=== PATIENT | female | born 1990 ===

== ENCOUNTER 2018-05-24 22:19 | Inpatient (IN) | payer MEDICAID, SELFPAY ==
[2018-05-24 22:53] VITALS: BMI 28.5
[2018-05-24] MEDS ORDERED: Oxytocin 30 UNIT 30 UNITS/500 ML BAG IV ONE (23:41)
[2018-05-24] MEDS ORDERED: OXYTOCIN/0.9 % NS 20 UNIT/1,000 ML BAG IV SCH (23:45)
[2018-05-25 00:13] LABS: BASO # 0.1 K/uL (0.0-0.2); BASO % 0.9 % (0.0-2.0); EOS % 0.5 % (0.0-4.0); HEMOGLOBIN 13.1 g/dL (12.0-16.0); LYMPH # 1.8 K/uL (1.0-4.3); LYMPH % 22.4 % (20.0-40.0); MEAN CELL VOLUME 87.4 fl (81.0-99.0); MEAN CORPUSCULAR HEMOGLOBIN 29.5 pg (27.0-31.0); MEAN CORPUSCULAR HGB CONC 33.7 g/dL (33.0-37.0); MONO # 0.5 K/uL (0.0-0.8); NEUT # 5.7 K/uL (1.8-7.0); NEUT % 70.2 % (50.0-75.0); RBC 4.45 Mil/uL (3.80-5.20); RED CELL DISTRIBUTION WIDTH 14.2 % (11.5-14.5); WHITE BLOOD COUNT 8.1 K/uL (4.8-10.8)
[2018-05-25] MEDS ORDERED: Fentanyl/Bupivacaine HCl 250 ML EPI ONE (00:25)
[2018-05-25] MEDS ORDERED: Lidocaine 1% Inj (20ml) ONE (00:29)
[2018-05-25] MEDS: Lactated Ringer's 1,000 ML IV SCH ×2 (00:30)
[2018-05-25] MEDS ORDERED: Lactated Ringer's 1,000 ML IV SCH (01:00)
[2018-05-25 01:26] VITALS: O2SAT 100
[2018-05-25] MEDS ORDERED: Benzocaine/Menthol SPRAY TOP PRN ×2 (05:51→19:49)
[2018-05-25] MEDS ORDERED: Oxycodone/Acetaminophen 5/325 mg Tab PO PRN ×2 (05:51→19:49)
[2018-05-25] MEDS ORDERED: Oxytocin 30 UNIT 30 UNITS/500 ML BAG IV ONE (05:53)
--- NOTE | 2018-05-25 06:00 | OBHP ---
Datetime: 05/24/2018 23:25 IP Adm Impression: Term, intrauterine IP Admit Plan: Observation/Evaluation Admit Comment, IP Provider: [employer]- [id number] 28 y/o at 38wks based on LMP 08/31/2017 is presenting with c/o sharp intermittent lower abdomi nal pain, 8/10 that started about 12pm. She also endorses noticing some vaginal spotting _ +FM. She d enied any loss of fluid. Denied f/v/n/v/d/ chest discomfort, shortness of breath or dysuria. OBGYNhx: , 2014 PMH: Denies Meds: PNV Allegies: NKA Surghx: Denies Famhx: brother-leukemia; mother _ father are healthy Sochx: Denies tobacco, EtOH or elicit drugs use ROS: all12 points reviewed _ neg unless otherwise mentioned in HPI VS: 110/66 spo2-100% pulse-79bpm RR-16 Gen: laying awake in bed, supine positing with facial grimacing Cardio: s1s2 RRR Lungs: normal resp effort Abd: BS+, nontender Pelvic: 5-6cm, 80% effaced, station -3 Ext: nonedematous A/P: 28 y/o at 38wks based on LMP 08/31/2017 is presenting with c/o sharp intermittent lower a bdominal pain _ vaginal spotting. -Admit to unit _ initiate labor protocol. -Continue FHR monitoring. Case discussed with Dr. Noe Mullen, FM, PGY-1 The patient was seen with the resident I agree with the note Extremities - PN: Normal Abdomen - PN: Normal Lungs - PN: Normal Heart - PN: Normal General - PN: Normal FHR - Baseline A Provider: 145 (Annotations: Data stored by CPN on behalf of user) Gestation - Est Wks by US: 38.0 Pool Provider: Negative IP Hx Assessment: The History has been Reviewed and is Current EGA AdmitDate IP: 38.0 Vital Signs Provider: Reviewed; Within Normal Limits IP Chief Complaint: Uterine contractions; Vaginal bleeding; Maternal discomfort NICHD Variability Prov Fetus A: Moderate 6-25bpm NICHD Accel Fetus A IP Provider: [id number] FHR Category Provider Fetus A: Category I NICHD Decel Fetus A IP Provider: None Dilatation, Provider: 5-6 Effacement, Provider: 80 Station, Provider: -3
--- NOTE | 2018-05-25 06:18 | OBDS ---
DELIVERY PERSONNEL Delivery Doctor: Anthony Liu MD Roofer Apprentice: Yara Garza RN Anesthesiologist: Teddy Means Resident: JAGDISH Mullen MATERNAL INFORMATION Delivery Anesthesia: Epidural Medications in Delivery: Oxytocin Estimated Blood Loss (ml): 200 Placenta Cultured: No Maternal Complications: None Provider Comments: Live baby boy at 5:31 AM the baby was bulb suctioned on the perineum and transfer red to the maternal chest. The cord was clamped and cut 3 vessels noted cord blood was obtained and s ent to lab. The placenta was delivered at 5:41 AM intact, the quantified blood loss was 200 mL. There was a first-degree vaginal laceration which was repaired with 2-0 Rapide. The mother tolerated the p rocedure well the baby went to the well-baby nursery with Apgars of 9 and 9 weighing 3145 g LABOR SUMMARY EDC: 06/07/2018 00:00 No. Babies in Womb: 1 Attempted: No Labor Anesthesia: Epidural LABOR INFORMATION Reason for Induction: Not Applicable Onset of Labor: 05/24/2018 23:35 Complete Dilatation: 05/25/2018 03:58 Oxytocin: N/A Group B Beta Strep: Negative Antibiotics # of Doses: n/a Antibiotics Time of Last Dose: n/a Steroids Given: None Reason Steroids Not Administered: Not Applicable MEMBRANES Membranes Rupture Method: Spontaneous Rupture of Membranes: 05/25/2018 04:49 Length of Rupture (hrs): 0.70 Amniotic Fluid Color: Clear Amniotic Fluid Amount: Moderate Amniotic Fluid Odor: Normal STAGES OF LABOR Stage 1 hrs: 4 Stage 1 min: 23 Stage 2 hrs: 1 Stage 2 min: 33 Stage 3 hrs: 0 Stage 3 min: 10 Total Time in Labor hrs: 6 Total Time in Labor min: 6 VAGINAL DELIVERY Episiotomy: None Laceration Extension: First Degree Laceration Type: Vaginal Laceration Repair: Yes Initial Vag Sponge Count: 5 Final Vag Sponge Count: 5 Initial Vag Sharps Count: 1 Final Vag Sharps Count: 1 Sponge Count Correct: Yes Sharps Count Correct: Yes Count Comment: count correct BABY A INFORMATION Infant Delivery Date/Time: 05/25/2018 05:31 Method of Delivery: Vaginal Born in Route : No : N/A Forceps: N/A Vacuum Extraction: N/A Shoulder Dystocia : No SHOULDER DYSTOCIA BABY A Infant Delivery Date/Time: 05/25/2018 05:31 PRESENTATION/POSITION BABY A Presentation: Cephalic Cephalic Presentation: Vertex PLACENTA INFORMATION BABY A Placenta Delivery Time : 05/25/2018 05:41 Placenta Method of Delivery: Spontaneous Placenta Status: Delivered SCORES BABY A Heart Rate 1 min: >100 bpm Resp Effort 1 min: Good Cry Reflex Irritability 1 min: Cough or Sneeze or Pulls Away Muscle Tone 1 min: Active Motion Color 1 min: Body [place], Extremities Blue Resuscitation Effort 1 min: Tactile Stimulation SCORE 1 MIN: 9 Heart Rate 5 min: >100 bpm Resp Effort 5 min: Good Cry Reflex Irritability 5 min: Cough or Sneeze or Pulls Away Muscle Tone 5 min: Active Motion Color 5 min: Body [place], Extremities Blue Resuscitation Effort 5 min: N/A SCORE 5 MIN: 9 INFORMATION BABY A Gestational Age at Delivery: 38.1 Gestational Status: Term Outcome : Liveborn Condition : Stable Infant Sex: Male IDENTIFICATION/MEDS BABY A ID Band Number: [id number] ID Band Location: Left Leg; Left Arm WEIGHT/LENGTH BABY A Birthweight (gms): 3145 Weight (lb): 6 Infant Weight (oz): 15 CORD INFORMATION BABY A No. Cord Vessels: 3 Nuchal Cord : N/A Cord Blood Taken: Yes Suction: Mouth; Nose ASSESSMENT BABY A Infant Complications: None Physical Findings at Delivery: Within Normal Limits Respirations: Appears Normal Automatic Print Developer/ALS Called : No Infant Care By: Corinna Transferred To: Remains with Mother
[2018-05-26] MEDS: Prenatal Multivit/Folic Acid/Iron Tab PO SCH (08:19)
--- NOTE | 2018-05-26 08:33 | OBPPN ---
Datetime: 05/26/2018 06:17 PP Pain Prov: Within normal limits PP Nausea Prov: Denies PP Flatus Prov: Yes PP BM Prov: No PP Heart Prov: Normal PP Lungs Prov: Normal PP Abdomen/Uterus Prov: Normal PP Lochia Prov: Normal PP Extremities Prov: Normal PP Impression Prov: Normal progression PP Plan Prov: Continue present management; consult PP Progress Note Prov: 28 y/o , PPD1 s/p , 05/25/2018 @ 531AM was seen and examined at [facility] e this AM. She had no complaints overnight. Pt states pelvic pain is well controlled with pain meds. Pt is ambulatory, tolerating PO regular diet _ breast feeding w/o difficulty. Lochia is similar to me nses volume. ?Voiding w/o difficulty. -Flatus _ -BM.Denies f/c/n/v/d, chest pain or shortness of brandyn th. VS: BP: 119/72 Temp: 98.6F, 66bpm, RR-16 spo2-100% PE: GEN: Laying in bed CVS: S1, S2 RRR LUNGS: Respiratory effort wnl ABD: +BS, soft with appropriate tenderness, fundus @ umbilical level. EXT: Nonedematous, calves nontender NEURO: AAOx3 28 y/o , PPD1 s/p . -Continue regular diet as tolerated. -Ambulation as tolerated encouraged. - encouraged. -Continue Ibuprofen prn for mild pain. Case discussed with attending. -Dr. DILLAN Mullen, FM, PGY-1 Attending addendum: I saw and examined the patient at bedside this morning. I reviewed the resident note above and agr ee with findings and management. Truxton is at nursey due to phototherapy, needs to pump, information resource consultant ordered. DC Home tomorrow. Leslee Joyce MD Vital Signs Provider PP: Reviewed; Within Normal Limits
[2018-05-26] MEDS ORDERED: Prenatal Multivit/Folic Acid/Iron Tab PO SCH (09:00)
[2018-05-27 06:48] LABS: BASO % 0.3 % (0.0-2.0); EOS # 0.2 K/uL (0.0-0.7); EOS % 1.7 % (0.0-4.0); HEMOGLOBIN 11.6 g/dL (12.0-16.0); LYMPH # 2.6 K/uL (1.0-4.3); LYMPH % 28.6 % (20.0-40.0); MEAN CELL VOLUME 87.7 fl (81.0-99.0); MEAN CORPUSCULAR HEMOGLOBIN 29.2 pg (27.0-31.0); MEAN CORPUSCULAR HGB CONC 33.3 g/dL (33.0-37.0); MEAN PLATELET VOLUME 11.3 fl (7.2-11.7); MONO # 0.5 K/uL (0.0-0.8); MONO % 5.9 % (0.0-10.0); NEUT # 5.9 K/uL (1.8-7.0); NEUT % 63.5 % (50.0-75.0); RBC 3.99 Mil/uL (3.80-5.20); RED CELL DISTRIBUTION WIDTH 14.4 % (11.5-14.5); WHITE BLOOD COUNT 9.2 K/uL (4.8-10.8)
[2018-05-27] MEDS: Prenatal Multivit/Folic Acid/Iron Tab PO SCH (08:27)
--- NOTE | 2018-05-27 08:53 | OBPPN ---
Datetime: 05/27/2018 06:31 PP Pain Prov: Within normal limits PP Nausea Prov: Denies PP Flatus Prov: Yes PP BM Prov: No PP Heart Prov: Normal PP Lungs Prov: Normal PP Abdomen/Uterus Prov: Normal PP Lochia Prov: Normal PP Extremities Prov: Normal PP Plan Prov: Continue present management; Discharge PP Progress Note Prov: 28 y/o PPD 2 s/p . She had no complaints of overnight. +FM, +BM. Pat ient voided w/o difficulty. Continues to ambulate, _ tolerating PO diet w/o difficulty. Lochia like m enses. Fundus @ level of umbilical Denies any f/c/n/v/d, cp or sob. VS: 135/75, HR-70bpm, Temp-97.9F Gen: awake, A _ ) x 3 laying awake in supine position Cardio: s1 s2 no murmurs, rubs or gallaps Lungs: cta b/l, no wheeze Abd: BS +, appropriate tenderness Ext: nontender, calves nontender A/P: 28 y/o PPD 2 s/p -Continue present management -Medication for pain management -Encourage breast feeding -SCD for DVT prophylaxis -Discharge today -Case discussed with attending -ROEL Prather JP, PGY-1 Attending Note: Patient was seen and discussed with the resident and I agree with the above assess ment. Vital Signs Provider PP: Reviewed; Within Normal Limits
--- NOTE | 2018-05-27 08:53 | OBDCSUM ---
Datetime: 05/27/2018 06:33 Discharged to, Provider: Home Follow up at, Provider: Dr. Meza Disch Instr Activity: May be up to bathroom; May be up for meals; May Shower Disch Instr Diet: Regular Discharge Instructions, Provider: Routine instructions given Discharge Diagnosis, Provider: Term Delivered Discharge Time: 05/27/2018 08:51 Follow up in weeks, Provider: 4-6 wks Disch Referrals: None Contraception discussed, Prov: Yes Disch Activity Restrictions: No lifting; Minimize stair-climbing; No sexual activity; Nothing in vag nichole - [place], tampons, douche Discharge Comment, Provider: 1. Continue . 2. May be up for bathroom, meals, and shower. 3. No lifting, minimize stairs, and nothing in the vagina x 6 weeks (no sex, no tampons, no douchi ng) 4. Continue Ibuprofen 600mg every 6 hrs for mild pain. Discharge Diagnosis Prov Other: S/P Uncomplicated , Clinically Stable Contraception after Delivery: Undecided
[2018-05-27 23:17] VITALS: BP 110/72; PULSE 80; RESP 18; TEMP 98.3
== END 2018-05-27 18:30 | disposition home or self-care (01) | DRG 807 ==
LOC: H.EROB2 22:19 → H.L&D 23:41 → H.OB/GYN 05-25 08:42
PROVIDERS: ADMIT Obstetrics & Gynecology Gynecology; ATTEND Obstetrics & Gynecology Gynecology
PROC: 4A1HXCZ Monitoring of Products of Conception, Cardiac Rate, External Approach (ICD-10-PCS; 2018-05-24)
PROC: 10E0XZZ Delivery of Products of Conception, External Approach (ICD-10-PCS; principal; 2018-05-25)
PROC: 0HQ9XZZ Repair Perineum Skin, External Approach (ICD-10-PCS; 2018-05-25)
DX: O70.0 First degree perineal laceration during delivery (principal); Z37.0 Single live birth; Z3A.38 38 weeks gestation of pregnancy; Z80.6 Family history of leukemia; O26.853 Spotting complicating pregnancy, third trimester